=== PATIENT | female | born 1975 | race Asian ===

== ENCOUNTER 2019-05-18 08:39 | Outpatient (CLI) | payer OTHER | END 2019-05-18 23:18 | disposition home or self-care (01) | LOC: MRI 08:39 | DX: M25.519 Pain in unspecified shoulder (principal) ==

== ENCOUNTER 2019-08-06 12:58 | Outpatient (CLI) | payer OTHER | END 2019-08-06 23:31 | disposition home or self-care (01) | LOC: MAMMO 12:58 | DX: Z12.31 Encounter for screening mammogram for malignant neoplasm of breast (principal) ==

== ENCOUNTER 2020-03-24 09:31 | Outpatient (CLI) | payer OTHER | END 2020-03-24 19:07 | disposition home or self-care (01) | LOC: RESP 09:31 | DX: R07.9 Chest pain, unspecified (principal) ==

== ENCOUNTER 2020-04-04 10:08 | Outpatient (CLI) | payer OTHER | END 2020-04-04 19:24 | disposition home or self-care (01) | LOC: MAMMO 10:08 | DX: N63.20 Unspecified lump in the left breast, unspecified quadrant (principal) | CPT/HCPCS: G0279 ==

== ENCOUNTER 2020-04-13 07:47 | Day surgery (SDC) | payer OTHER ==
[2020-04-13 08:18] LABS: PLATELET COUNT 506 K/uL (152-353)
[2020-04-13 08:21] LABS: POTASSIUM 3.7 mmol/L (3.6-5.2)
== END 2020-04-13 10:47 | disposition home or self-care (01) ==
LOC: OR 07:47
PROVIDERS: Student in an Organized Health Care Education/Training Program
PROC: 0DB48ZZ Excision of Esophagogastric Junction, Via Natural or Artificial Opening Endoscopic (ICD-10-PCS; principal; 2020-04-13)
PROC: 0DB78ZZ Excision of Stomach, Pylorus, Via Natural or Artificial Opening Endoscopic (ICD-10-PCS; 2020-04-13)
PROC: 0DB68ZZ Excision of Stomach, Via Natural or Artificial Opening Endoscopic (ICD-10-PCS; 2020-04-13)
DX: K29.50 Unspecified chronic gastritis without bleeding (principal); B96.81 Helicobacter pylori [H. pylori] as the cause of diseases classified elsewhere; K21.0 Gastro-esophageal reflux disease with esophagitis
CPT/HCPCS: 80053; 85027; J2704

== ENCOUNTER 2020-04-19 07:54 | Outpatient (CLI) | payer OTHER | END 2020-04-19 22:29 | disposition home or self-care (01) | LOC: RESP 07:54 | DX: R00.2 Palpitations (principal) ==

== ENCOUNTER 2020-07-12 11:46 | Outpatient (CLI) | payer OTHER | END 2020-07-12 19:37 | disposition home or self-care (01) | LOC: RAD 11:46 | DX: R07.89 Other chest pain (principal) ==

== ENCOUNTER 2020-07-19 09:58 | Outpatient (CLI) | payer OTHER | END 2020-07-20 00:37 | disposition home or self-care (01) | LOC: US 09:58 | DX: N60.02 Solitary cyst of left breast (principal); Z12.31 Encounter for screening mammogram for malignant neoplasm of breast | CPT/HCPCS: G0279 ==

== ENCOUNTER 2020-08-08 19:27 | Outpatient (CLI) | payer OTHER | END 2020-08-08 20:22 | disposition home or self-care (01) | LOC: LABW 19:27 → RAD 19:27 → LABW 20:22 | DX: M54.6 Pain in thoracic spine (principal) ==

== ENCOUNTER 2020-10-24 04:49 | Emergency (ER) | payer OTHER ==
[~2020-10-24] VITALS: Ht 157.5 cm; Wt 95.3 kg
[2020-10-24 05:17] LABS: PLATELET COUNT 482 K/uL (152-353)
[2020-10-24 05:27] LABS: POTASSIUM 3.4 mmol/L (3.6-5.2); SODIUM 137 mmol/L (136-145)
[2020-10-24 06:03] VITALS: BP 127/89; TEMP 98.9
[2020-10-24 07:04] LABS: PARTIAL THROMBOPLASTIN TIME 25.7 SECONDS (24.5-33.6)
== END 2020-10-24 06:12 | disposition home or self-care (01) ==
LOC: ED 04:49
PROVIDERS: Hospitalist
DX: R07.89 Other chest pain (principal); K21.9 Gastro-esophageal reflux disease without esophagitis
CPT/HCPCS: 36415; 80053; 82150; 82550; 83690; 83880; 84484; 85027; 85610; 85730; 93005; 99284

== ENCOUNTER 2020-12-23 15:59 | Outpatient (CLI) | payer OTHER | END 2020-12-23 21:41 | disposition home or self-care (01) | LOC: CT 15:59 | PROVIDERS: ATTEND Nurse Practitioner Family | DX: R10.32 Left lower quadrant pain (principal) | CPT/HCPCS: 36415; 82565; 84520; Q9963 ==

== ENCOUNTER 2021-03-06 17:22 | Outpatient (CLI) | payer OTHER | END 2021-03-06 21:05 | disposition home or self-care (01) | LOC: RAD 17:22 | PROVIDERS: ATTEND Nurse Practitioner Family | DX: M54.6 Pain in thoracic spine (principal); M54.2 Cervicalgia ==

== ENCOUNTER 2021-04-19 12:16 | Outpatient (CLI) | payer OTHER | END 2021-04-19 22:15 | disposition home or self-care (01) | LOC: US 12:16 | PROVIDERS: ATTEND Nurse Practitioner Family | DX: M79.605 Pain in left leg (principal) ==

== ENCOUNTER 2021-05-23 11:27 | Outpatient (CLI) | payer OTHER | END 2021-05-23 19:24 | disposition home or self-care (01) | LOC: RAD 11:27 | PROVIDERS: ATTEND Nurse Practitioner Family | DX: M54.5 Low back pain (principal) ==

== ENCOUNTER 2021-09-26 09:40 | Outpatient (CLI) | payer OTHER | END 2021-09-26 19:07 | disposition home or self-care (01) | LOC: CT 09:40 | PROVIDERS: ATTEND Nurse Practitioner Family | DX: R10.32 Left lower quadrant pain (principal) ==

== ENCOUNTER 2021-10-25 16:54 | Outpatient (CLI) | payer OTHER ==
[2021-10-25 17:41] LABS: POTASSIUM 3.6 mmol/L (3.6-5.2)
[2021-10-25 17:55] LABS: PLATELET COUNT 520 K/uL (152-353)
== END 2021-10-25 19:19 | disposition home or self-care (01) ==
LOC: LABW 16:54
PROVIDERS: ATTEND Nurse Practitioner Family
DX: R07.89 Other chest pain (principal)
CPT/HCPCS: 36415; 80053; 82550; 82553; 84484; 85027

== ENCOUNTER 2022-12-25 15:37 | Outpatient (CLI) | payer OTHER | END 2022-12-25 19:30 | disposition home or self-care (01) | LOC: MAMMO 15:37 | PROVIDERS: ATTEND Nurse Practitioner Family | DX: Z12.31 Encounter for screening mammogram for malignant neoplasm of breast (principal) ==

== ENCOUNTER 2023-04-18 12:13 | Outpatient (CLI) | payer OTHER ==
[2023-04-18 12:32] LABS: PLATELET COUNT 592 K/uL (152-353)
[2023-04-18 13:12] LABS: POTASSIUM 3.3 mmol/L (3.6-5.2)
== END 2023-04-18 22:29 | disposition home or self-care (01) ==
LOC: LABW 12:13
PROVIDERS: ATTEND Nurse Practitioner Family
DX: R19.7 Diarrhea, unspecified (principal)
CPT/HCPCS: 36415; 80048; 83630; 85027; 87015; 87045; 87324; 87328; 87329; 87449; 87899